=== PATIENT | female | born 1940 | race Caucasian/White ===

== ENCOUNTER 2019-04-21 14:16 | Inpatient (IN) | payer MEDICARE, BC ==
[~2019-04-21] VITALS: Ht 149.9 cm; Wt 87.1 kg
[2019-04-21 14:24] VITALS: BP 119/32
[2019-04-21] MEDS ORDERED: TOPROL XL25 MG PO ×2 (14:42→14:44)
[2019-04-21] MEDS ORDERED: COLACE100 MG PO (14:42)
[2019-04-21] MEDS ORDERED: FUROSEMIDE 40 M40 MG (14:43)
[2019-04-21] MEDS ORDERED: LIPITOR 20 MG T20 M1 PO (14:43)
[2019-04-21] MEDS ORDERED: SENNA8.8 MG/5 M PO (14:44)
[2019-04-21] MEDS ORDERED: VITAMIN D250000 UNIT PO (14:45)
[2019-04-21] MEDS ORDERED: ECOTRIN325 MG PO (14:45)
[2019-04-21] MEDS ORDERED: LANTUS SUBQ (14:46)
[2019-04-21] MEDS ORDERED: HUMALOG100 UNIT/1 SUBQ (14:46)
[2019-04-21] MEDS ORDERED: NORCO 5-325 TA1 EAC1 PO (14:49)
[2019-04-21] MEDS ORDERED: CALCIUM 600 MG1 EAC2 PO (14:50)
[2019-04-21] MEDS ORDERED: NEURONTIN 400M400 M2 PO (14:51)
[2019-04-21] MEDS ORDERED: MIDODRINE HCL10 MG PO (14:51)
[2019-04-21] MEDS ORDERED: RENAL-VITE TAB0.8 MG PO (14:52)
[2019-04-21] MEDS ORDERED: VITAMIN E1000 UNIT PO (14:52)
[2019-04-21] MEDS ORDERED: MELATONIN3 M1 PO (14:53)
[2019-04-21 15:16] LABS: ABSOLUTE BASOPHILS 0.1 thou/uL (0.0-0.2); ABSOLUTE EOSINOPHILS 0.1 thou/uL (0.0-0.7); ABSOLUTE LYMPHOCYTES 1.1 thou/uL (0.8-5.3); ABSOLUTE MONOCYTES 0.6 thou/uL (0.0-1.2); ABSOLUTE NEUTROPHILS 6.2 thou/uL (1.6-8.1); BASOPHILS 0.8 %; EOSINOPHILS 1.4 %; HEMATOCRIT 34.2 % (37.0-47.0); LYMPHOCYTES 13.4 %; MCH 37.2 pg (26.0-34.0); MCHC 35.1 g/dL (28.0-37.0); MCV 105.9 fL (80.0-100.0); MONOCYTES 7.4 %; MPV 8.4 fl. (7.2-11.1); NUCLEATED RBCS 0 /100WBC; PLATELET COUNT* 171 thou/uL (150-400); RBC 3.23 mil/uL (4.20-5.00); RDW-CV 16.7 % (10.5-14.5); WBC 8.1 thou/uL (4.0-11.0)
[2019-04-21 15:20] LABS: CALCIUM 9.7 mg/dL (8.5-10.1); CREATININE 3.6 mg/dL (0.6-1.3); POTASSIUM 3.9 mmol/L (3.5-5.1)
[2019-04-21 15:25] LABS: ALBUMIN 3.1 g/dL (3.4-5.0); TOTAL BILIRUBIN 0.4 mg/dL (<0.1-1.0)
[2019-04-21 20:26] VITALS: BP 104/27
[2019-04-21 20:30] VITALS: BP 137/32
[2019-04-22] VITALS: BP 123/34
[2019-04-22] MEDS ORDERED: TOPAMAX100 MG PO (01:37)
[2019-04-22 04:00] VITALS: BP 100/33
--- NOTE | 2019-04-22 04:47 | NUR ---
RECEIVED PT FROM ED AT APPROX 2030 PER CART, PT IS AWAKE AND ORIENTED X4. VSS ON ROOM AIR. CAUSTICISER IN PLACE TRACING SR BBB. ADMISSION ASSESSMENT DONE AND CHARTED. PT C/O PAIN ON RIGHT FOOT PARTIALLY RELIEVED BY PAIN MEDICINE GIVEN PER SEP. HEPARIN DRIP TITRATED PER DVT PROTOCOL. BLEEDING PRECAUTIONS IMPLEMENTED. ADVISED ON THE USE OF CALL LIGHT, ORIENTED ON THE USE OF CALL LIGHT. PT IS ABLE TO SLEEP SOME. CLOSELY MONITORED.
[2019-04-22] MEDS ORDERED: NEURONTIN100 MG PO ×2 (06:24→06:26)
[2019-04-22] MEDS ORDERED: HUMALOG100 UNIT/1 SUBQ (06:30)
[2019-04-22] MEDS ORDERED: VITAMIN D250000 UNIT PO (06:35)
[2019-04-22] MEDS ORDERED: CALCIUM ACETAT667 MG PO (06:37)
[2019-04-22] MEDS ORDERED: NITROGLYCERIN0.4 MG SUBLING (06:38)
[2019-04-22 08:00] VITALS: BP 130/30
[2019-04-22 11:00] VITALS: BP 151/30
--- NOTE | 2019-04-22 11:28 | EKG ---
[place] [address] ELECTROCARDIOGRAM REPORT Name: DOUG WALKER Room: [address] ADM IN M.R.#: [id number] Admission: 04/21/19 Attend Phys: Massimo Caballero MD Discharge: Date of : 44 Report #: [id number] THIS REPORT FOR: //name// [facility] ED Test Date: 2019-04-21 Test Time: 20:02:57 Pat Name: DOUG DOZIERWILER Department: Room: [address] Gender: F Harbormaster: MARIAH : 1940 Requested By: Sánchez Cannon Order Number: [id number] Amalia MD: Conrado Bonds Measurements Intervals [place] Rate: 51 P: 46 IN: 182 QRS: 70 QRSD: 148 T: 60 QT: 482 QTc: 444 Interpretive Statements Sinus bradycardia Right bundle branch block Inferior infarct, old Baseline wander in lead(s) V1 No previous ECG available for comparison Electronically Signed On 04-22-2019 11:27:47 CDT by Conrado Bonds [email or web address] <ELECTRONICALLY SIGNED> By: Conrado Bonds MD, [facility] 04/22/19 1127 01 01 Conrado Bonds MD, FAC /EPI
--- NOTE | 2019-04-22 12:56 | NUR ---
Nutrition: Pt admitted with PAD, pain in Rt foot. Assessed for pressure ulcer risk. Pt does not have pressure ulcer. She had HD outpatient, PAD, DM. Albumin is 3.1, BG 221, BUN 33, cr 3.6. Heart Healthy diet ordered. Consider Renal diet. No other nutrition interventions needed at this time. Mild to low nutrition risk.
--- NOTE | 2019-04-22 14:01 | NUR ---
WOUND CARE NOTE: CONSULT RECEIVED FOR SACRAL PRESSURE SORES, PAD RT FOOT. PATIENT PRESENTS WITH NON-BLANCHABLE ERYTHEMA TO THE RIGHT TOES AND FOREFOOT. NO OPEN WOUNDS NOTED. VASCULAR SURGERY ON BOARD. NO INTERVENTIONS FROM WOUND CARE TEAM AT THIS TIME. COCCYX: STAGE 2 PRESSURE ULCER APPROXIMATELY 0.3X0.3X0.1. TRACI-WOUND IS MACERATED. WOUND BED IS PINK AND MOIST. RIGHT BUTTOCK: STAGE 2 PRESSURE ULCER. DRY, SCABBED AREA, SMALL OPENING. LEFT BUTTOCK: STAGE 2 PRESSURE ULCER. DRY SCABBED AREA. NO OPENING. PATIENT ADMITS TO SITTING MOST OF THE TIME, STATES SHE HASN'T SLEPT IN A BED SINCE HER HEART SURGERY. STATES HER STERNUM DID NOT HEAL PROPERLY AND IT HURTS TO LIE DOWN. PATIENT STATES THAT SHE HAS HAD SORES DOWN THERE BEFORE REQUIRING S[facility]YL [facility]INTMENT, BUT THEN THEY WENT AWAY. EDUCATED PATIENT AND DAUGHTER ON OFFLOADING, SHIFTING WEIGHT, AND USING THE WAFFLE CUSHIONS, COMMUNICATED UNDERSTANDING. ENCOURAGED TO LIE ON HER SIDES, BUT THIS WILL BE DIFFICULT FOR PATIENT TO DO DUE TO PAIN. EDUCATED ON IMPORTANCE OF DIET, BLOOD SUGAR CONTROL, AND SMOKING CESSATION TO ASSIST WITH WOUND HEALING, COMMUNICATED UNDERSTANDING AND STATED SHE WOULD DO HER BEST. EDUCATED ON USE OF BARRIER OINTMENT, COMMUNICATED UNDERSTANDING. RECOMMEND TURN Q2 HOURS SHIFT WEIGHT WHEN IN CHAIR USE WAFFLE CUSHION WHEN IN CHAIR ENCOURAGE GOOD NUTRTION/HYDRATION TIGHT BLOOD GLUCOSE CONTROL ENCOURAGE SMOKING CESSATION TAKE WAFFLE CUSHIONS HOME UPON DISCHARGE BARRIER OINTMENT BID AND PRN
--- NOTE | 2019-04-22 14:23 | NUR ---
Pt is A&O. Resides at home with her . Children assists as needed, provide driving and cleaning. Pt and receive Meals on Wheels and are able to prepare breakfast and dinner. Pt uses a RW for mobility. Hx of HH, believes with [facility], but Pt is not sure. No hx of SNF. Pt is current at [facility], to fax H&P and flowsheets at co f:[phone], [phone]. Pt is on a -Sat schedule. Per dtr, they are working on applying for [place] [facility]. Goal is home at co, Pt is open to HH at co if needed. Following.
[2019-04-22 16:59] VITALS: BP 117/92
--- NOTE | 2019-04-22 18:03 | NUR ---
ASSUMED PT CARE AT 0730. ASSESSMENT COMPLETED CHARTED. ABLE TO MAKE NEEDS KNOWN. UP WITH ASSIST WITH WALKER. C/O SLIGHT RIGHT FOOT PAIN, TURNED INTO SHARP PAIN LATER IN THE DAY AND GAVE PRN PAIN MEDICATION. PT FAMILY AT BEDSIDE MOST OF THE DAY. HEPARIN GTT RUNNING PER EMAR. HAD TO STOP HEPARIN GTT AND HAD ISSUES PUTTING IN NEW IV, THEN HAD TO PUT IN ANOTHER IV FOR ANTIBIOTICS. WILL CONTINUE TO MONITOR.
[2019-04-22 20:00] VITALS: BP 130/30
[2019-04-23] VITALS: BP 132/31
[2019-04-23 04:00] VITALS: BP 132/35
--- NOTE | 2019-04-23 04:22 | NUR ---
ASSUMED PT CARE AT APPROX 1930. PT IS AWAKE AND ORIENTED X4. VSS ON ROOM AIR. BUSINESS MANAGER COLLEGE OR UNIVERSITY IN PLACE TRACING SR. ASSESSMENT DONE AND CHARTED. HEPARIN DRIP INFUSING PER DVT PROTOCOL. CLOSELY MONITORED FOR BLEEDING. PT STATED THAT THE PAIN ON HER RT LEG IS BETTER. PT IS ABLE TO SLEEP MOST OF THE NIGHT. PT IS FOR CTA RUN OFF IN AM. PRE MEDS FOR IODINE ALLERGY ADMINISTERED PER SEP. CALL LIGHT WITHIN REACH. HOURLY ROUNDING DONE FOR PT SAFETY.
--- NOTE | 2019-04-23 05:09 | CON ---
[address] [address] CONSULTATION Name: DENISEDOUG M Room: [address] IN M.R.#: [id number] Admission: 04/21/19 Attend Phys: Massimo Caballero MD Discharge: Date of : 44 Report #: [id number] THIS REPORT FOR: //name// CC: Hernandez Caballero DATE OF SERVICE: 04/22/2019 NEPHROLOGY CONSULTATION CONSULTING PHYSICIAN: Dr. Jaimes. REASON FOR NEPHROLOGY CONSULTATION: End-stage renal disease, needs IV contrast. REASON FOR ADMISSION: The patient had pain in her right foot and right leg close to her knee. HISTORY OF PRESENT ILLNESS: This is a 78-year-old female with a past medical history of peripheral vascular disease, follows with Dr. Caballero, end-stage renal disease on hemodialysis every Saturday, and Saturday, came in after she was on dialysis yesterday and started having pain in her right lower extremity. She normally has her dialysis for 2-1/2 hours and received 2 hours of dialysis yesterday. Her potassium is 3.9. She has no difficulty breathing right now. She still makes some urine. She has a left arm AV fistula. Vascular Surgery, Dr. Caballero has been consulted. We also consulted because Dr. Caballero had recommended a CTA study and contrast approval was needed. ALLERGIES: TO IODINE. REVIEW OF SYSTEMS: As mentioned in history of present illness. Pain in her right leg is better overnight and otherwise 10-point review of systems is negative. PAST MEDICAL HISTORY: Which includes peripheral vascular disease, end-stage renal disease, she has solitary kidney, diabetes type 2 and hypertension. 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 PAST SURGICAL: As above. HOME MEDICATIONS: Which include metoprolol; docusate; furosemide; atorvastatin; sennosides; aspirin; vitamin D2; insulin glargine; insulin lispro; hydrocodone; supplement, calcium, magnesium, Zinc ____; gabapentin; midodrine; vitamin E acetate; folic acid; vitamin B complex [place] [address] CONSULTATION Name: DOUG WALKER Brett Room: [address]#: [id number] Admission: 04/21/19 Attend Phys: Massimo Caballero MD Discharge: Date of : 44 Report #: [id number] FAMILY HISTORY: Noncontributory. SOCIAL HISTORY: She does not smoke or take alcohol or use illicit drugs. PHYSICAL EXAMINATION: VITAL SIGNS: Blood pressure is 130/30, respiratory rate is 18, pulse rate is 50, temperature is 36.7, she is on room air, her pulse ox is 95%. GENERAL: She is sitting in chair comfortably with her legs up. She is awake, alert and oriented x 3. HEAD AND EYES: Atraumatic, normocephalic. EARS, NOSE, AND THROAT: Mucous membranes are moist. NECK: No JVD. CHEST: Bilaterally clear to auscultation anteriorly. No crackles or wheezing. CARDIOVASCULAR: S1, S2 normal. No murmurs or rubs. ABDOMEN: Soft, nondistended, nontender. Bowel sounds are present. EXTREMITIES: She has no lower extremity edema. DIALYSIS ACCESS: She has a left arm AV fistula with good bruit and thrill. NEUROLOGICAL FUNCTION: Gross neurological function is intact. PSYCHIATRIC: Mood and affect seem to be normal. LABORATORY DATA: Hemoglobin 12.0. Potassium is 3.9, sodium is 134 and other labs are reviewed. IMAGING: Ultrasound of lower extremities was reviewed. ASSESSMENT: 1. End-stage renal disease, on hemodialysis every Saturday, and Saturday. 2. Peripheral vascular disease. 3. Diabetes type 2. 4. Diabetic neuropathy. 5. Hypertension. 6. Anemia of chronic kidney disease. PLAN: 1. From renal standpoint, it is okay to give IV contrast, but the patient did mention that she has an allergy to IV contrast, so I will defer their decision to give IV contrast or not to hospitalist and Vascular Surgery. 2. We will dialyze her tomorrow and there is no acute need for dialysis today. 3. Hemoglobin 12.0, [place] [address] CONSULTATION Name: DOUG WALKER Room: [address] IN ..#: [id number] Admission: 04/21/19 Attend Phys: Massimo Caballero MD Discharge: Date of : 44 Report #: [id number] Thank you for this consultation. We will continue to follow with you for dialysis needs. <ELECTRONICALLY SIGNED> By: Brianne Brito MD 04/23/19 0509 0913 [id number] Brito MD /nt
[2019-04-23 07:48] VITALS: BP 155/40
--- NOTE | 2019-04-23 09:23 | CON ---
[address] [address] CONSULTATION Name: DOUG WALKER Room: [address] IN M.R.#: [id number] Admission: 04/21/19 Attend Phys: Massimo Caballero MD Discharge: Date of : 44 Report #: [id number] THIS REPORT FOR: //name// CC: Hernandez Caballero DATE OF SERVICE: 04/22/2019 INFECTIOUS DISEASE CONSULTATION ATTENDING PHYSICIAN: Dr. Almeida. REASON FOR EVALUATION: Right lower extremity inflammatory eruption, suspected multifactorial including a component of skin and soft tissue infection with cellulitis. HISTORY OF PRESENT ILLNESS: Chart reviewed, patient examined. This is a 78-year-old woman with known vasculopathy; has end-stage renal disease, on hemodialysis; who over the course of the last few weeks, has increasing pain associated with the right lower extremity with associated redness and some degree of swelling as well. It is not clear if she has had any fevers. Appetite has been reasonable. She was evaluated as an outpatient, diagnosed with a cellulitis, treated with cephalexin without significant improvement. She was reevaluated. There is question of possible severe vasculopathy. She was subsequently admitted, is undergoing evaluation. She is empirically dosed with vancomycin x 1 given her renal insufficiency. She is lucid, does have moderate degree of pain and discomfort at this point.+ ALLERGIES: IODINE, ANAPHYLAXIS. CURRENT MEDICATIONS: Include vancomycin with dialysis, cholecalciferol, metoprolol, senna, atorvastatin, aspirin, midodrine, melatonin, gabapentin, topiramate, fentanyl. PAST MEDICAL HISTORY: As described above, diabetes mellitus type 2 complicated by vasculopathy; peripheral vascular disease; end-stage renal disease, on hemodialysis; known coronary artery disease; previous stenting; post-cholecystectomy; appendectomy. SOCIAL HISTORY: She is a smoker. No ethanol, no illicit drug use. FAMILY HISTORY: Noncontributory. REVIEW OF SYSTEMS: Otherwise unremarkable with exception of the [place] [address] CONSULTATION Name: DENISEDOUG M Room: [address] IN ..#: [id number] Admission: 04/21/19 Attend Phys: Massimo Caballero MD Discharge: Date of : 44 Report #: [id number] PHYSICAL EXAMINATION: GENERAL: [id number] distress. She is lucid. She appears chronically ill, mildly undernourished. VITAL SIGNS: Temperature 98.0, pulse 48, respirations 18, blood pressure 117/92. SKIN: Warm, dry, no rashes. HEENT: Normocephalic. Extraocular muscles intact. NECK: Supple. LUNGS: Diminished breath sounds. HEART: Regular. Borderline bradycardic. I do not appreciate a murmur. ABDOMEN: Obese, soft, nontender. EXTREMITIES: Bilateral lower extremities have changes consistent with dermopathy related to arterial insufficiency. There is color changes noted distally. There is moderate degree of erythrodermic type rash. GENITOURINARY AND RECTAL: Deferred. LABORATORY DATA: Initial CBC: White count of 8.1, H and H 12.0 and 34.2, platelets 171. Electrolytes: Sodium 134, potassium 3.9, chloride 97, bicarbonate is 26, anion gap of 11, BUN and creatinine 33/3.6, glucose of 150, albumin of 3.1, total protein of 7.0. LFTs unremarkable. Arterial Doppler showed monophasic inflow suggesting severe distal aortic or bilateral iliac vascular disease. ASSESSMENT: Right lower extremity inflammatory eruption, likely multifactorial, cannot exclude a complicating factor of skin and soft tissue infection with cellulitis. She has been dosed with vancomycin. We will continue with that approach. Vascular Surgery undergoing evaluation including dye test of the lower extremity. At this point, there are no wounds. We will have to monitor for any areas of superficial breakdown. Discussed in detail with his family, answered questions. <ELECTRONICALLY SIGNED> By: Ted Tello MD 04/23/19 0923 1721 [id number] Tello MD /nt
[2019-04-23 11:10] VITALS: BP 151/36
[2019-04-23] MEDS ORDERED: NYSTATIN15 G2 TOP (15:19)
[2019-04-23 15:20] VITALS: BP 151/36
--- NOTE | 2019-04-23 18:53 | NUR ---
ASSUMED PT CARE AT 0730. ASSESSMENT COMPLETED CHARTED. ABLE TO MAKE NEEDS KNOWN. UP WITH ASSIST TO BATHROOM. DIALYSIS COMPLETED TODAY. NO C/O PAIN OR DISCOMFORT. DISCHARGE ACCEPTED, HEART MONITOR REMOVED. GIVING PT FINAL IV ABT BEFORE LEAVING. ALL BELONGINGS PACKED AND DAUGHTER AT BEDSIDE. DISCHARGE PAPERWORK GIVEN, NO COMMENTS, QUESTIONS, OR CONCERNS NOTED. WILL BE TRANSFERRED TO CAR IN WHEELCHAIR AFTER ABT DONE INFUSING AND REMOVED IV.
--- NOTE | 2019-04-24 10:58 | NUR ---
CM faxed flowsheets and H&P to [facility]
== END 2019-04-23 19:15 | disposition home or self-care (01) | DRG 299 ==
LOC: M.ERS 14:16 → M.TBA-ER 18:09 → M.2W 18:09
PROVIDERS: Emergency Medicine; ADMIT Internal Medicine
PROC: 5A1D70Z Performance of Urinary Filtration, Intermittent, Less than 6 Hours Per Day (ICD-10-PCS; principal; 2019-04-23)
DX: E11.51 Type 2 diabetes mellitus with diabetic peripheral angiopathy without gangrene (principal); N18.6 End stage renal disease; I12.0 Hypertensive chronic kidney disease with stage 5 chronic kidney disease or end stage renal disease; L03.90 Cellulitis, unspecified; M31.9 Necrotizing vasculopathy, unspecified; I70.219 Atherosclerosis of native arteries of extremities with intermittent claudication, unspecified extremity; Z99.2 Dependence on renal dialysis; D63.1 Anemia in chronic kidney disease; F17.210 Nicotine dependence, cigarettes, uncomplicated; E78.5 Hyperlipidemia, unspecified; R09.89 Other specified symptoms and signs involving the circulatory and respiratory systems; E11.42 Type 2 diabetes mellitus with diabetic polyneuropathy; E11.22 Type 2 diabetes mellitus with diabetic chronic kidney disease; I25.10 Atherosclerotic heart disease of native coronary artery without angina pectoris; Z95.820 Peripheral vascular angioplasty status with implants and grafts; Z95.5 Presence of coronary angioplasty implant and graft; Z98.42 Cataract extraction status, left eye; Z98.41 Cataract extraction status, right eye; Z90.49 Acquired absence of other specified parts of digestive tract; Z91.041 Radiographic dye allergy status; Z95.1 Presence of aortocoronary bypass graft; Z82.49 Family history of ischemic heart disease and other diseases of the circulatory system; Z83.3 Family history of diabetes mellitus; I25.2 Old myocardial infarction; Z85.51 Personal history of malignant neoplasm of bladder; Z85.54 Personal history of malignant neoplasm of ureter